=== PATIENT | female | born 1980 | race Hispanic/Latino ===

== ENCOUNTER 2016-10-12 01:18 | Observation (INO) | payer OTHER ==
[2016-10-12 01:43] VITALS: BMI 18.8
[2016-10-12 01:47] VITALS: TEMP 98.9; O2SAT 100
--- NOTE | 2016-10-12 01:57 | ED PDOC ---
HPI: Psych/Substance Abuse Time Seen by Provider: 10/12/16 01:43 Chief Complaint (Nursing): Anxiety Chief Complaint (Provider): Anxiety History Per: Patient History/Exam Limitations: no limitations Onset/Duration Of Symptoms: Hrs Additional Complaint(s): Patient is a 36 year old female brought to the emergency department by her for anxiety and panic that started an hour ago with associated left sided head tingling and pain, neck discomfort, and general pain throughout the left side of her body. Reports increasing anxiety and agitation. 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 Reports that she had felt these symptoms once before and was referred to a specialist for head and neck MRI but the appointment today was cancelled. Denies chest pain, shortness of breath, surgical history, allergies, or drug use. PCP: none provided. Past Medical History Reviewed: Historical Data, Nursing Documentation, Vital Signs Vital Signs: Last Vital Signs Temp 98.9 F 10/12/16 01:44 Pulse 103 H 10/12/16 01:44 Resp 22 10/12/16 01:44 BP 136/73 10/12/16 01:44 Pulse Ox 100 10/12/16 01:44 - Medical History Other PMH: Neck problem to be diagnosed - Surgical History Surgical History: No Surg Hx - Family History Family History: States: Unknown Family Hx - Social History Current smoker - smoking cessation education provided: Yes Alcohol: Social Drugs: Denies - Allergies Allergies/Adverse Reactions: Allergies Allergy/AdvReac Type Severity Reaction Status Date / Time No Known Allergies Allergy Verified 10/12/16 01:43 Review of Systems ROS Statement: Except As Marked, All Systems Reviewed And Found Negative Constitutional: Positive for: Other (pain throughout left side of body) Cardiovascular: Negative for: Chest Pain Respiratory: Negative for: Shortness of Breath Musculoskeletal: Positive for: Neck Pain (neck discomfort), Other (left sided head pain and tingling) Neurological: Positive for: Headache (resolving) Psych: Positive for: Anxiety Physical Exam - Reviewed Nursing Documentation Reviewed: Yes Vital Signs Reviewed: Yes - Physical Exam Appears: Positive for: Well, Non-toxic, No Acute Distress Head Exam: Positive for: ATRAUMATIC, NORMAL INSPECTION, NORMOCEPHALIC Skin: Positive for: Normal Color, Warm, DRY Eye Exam: Positive for: EOMI, Normal appearance, PERRL Neck: Positive for: Normal, Supple Cardiovascular/Chest: Positive for: Regular Rate, Rhythm. Negative for: Murmur Respiratory: Positive for: Normal Breath Sounds. Negative for: Accessory Muscle Use, Respiratory Distress Gastrointestinal/Abdominal: Positive for: Normal Exam, Soft Back: Positive for: Normal Inspection Extremity: Positive for: Normal ROM. Negative for: Pedal Edema Neurologic/Psych: Positive for: Alert, Oriented. Negative for: Other ( paresthesia, limb weakness) - Laboratory Results Result Diagrams: 10/12/16 02:01 10/12/16 02:01 - ECG O2 Sat by Pulse Oximetry: 100 (RA) Pulse Ox Interpretation: Normal Medical Decision Making Medical Decision Making: Time: 01:45 Initial Plan: -Labs -EKG -Cervical Spine CT Scan w/o contrast -Head CT Scan w/o contrast -Ativan 1 mg IVP -Reevaluation Initial Impression: Intracranial process, cervical spine fracture, psychiatric process. 04:22 Lab work reviewed and noted for low potassium. Head CT Scan Findings: Brain: Unremarkable. No hemorrhage. No significant white matter disease. No edema. Ventricles: Unremarkable. No ventriculomegaly. Bones/joints: Unremarkable. No acute fracture. Soft tissues: Unremarkable. Sinuses: Unremarkable as visualized. No acute sinusitis. Mastoid air cells: Unremarkable as visualized. No mastoid effusion. IMPRESSION: No evidence of an acute intracranial abnormality. Cervical Spine CT Scan Findings: Straightening of the normal cervical lordosis. There is no evidence of acute fracture. There is no evidence of malalignment or dislocation. C5-6 and C6-7 mild left paracentral disc bulge and mild spinal canal stenosis. There are no significant degenerative changes present. The facet joints are intact. The pharyngeal, hypopharyngeal, and laryngeal structures are unremarkable. There is no evidence of lymphadenopathy. The visualized portions of the lung apices are normal. 06:08 Lab work was reviewed with normal findings. Urine test is positive for benzodiazepines, however patient is on Xanax. 06:59 Discussed results with patient who expressed extreme anxiety. Will order image of the soft tissue of the neck as patient still admits to feeling pain on the left side of her neck. Patient was evaluated by Dr. Avalos and is stable for discharge with diagnosis of anxiety. Upon provider reevaluation patient is medically stable, and requires no further treatment in the ED at this time. Counseling was provided and all questions were answered regarding diagnosis and need for follow up. There is agreement to discharge plan. Return if symptoms persist or worsen. IMPRESSION: No acute fracture or dislocation Scribe Attestation: Documented by Georgia Camejo, acting as a scribe for Dee Miller MD Provider Scribe Attestation: All medical record entries made by the Scribe were at my direction and personally dictated by me. I have reviewed the chart and agree that the record accurately reflects my personal performance of the history, physical exam, medical decision making, and the department course for this patient. I have also personally directed, reviewed, and agree with the discharge instructions and disposition. Disposition - Patient ED Disposition Is Patient to be Admitted: No - Disposition Forms: [employer] (Niuean)
[2016-10-12 02:04] LABS: BASO # 0.1 K/uL (0.0-0.2); BASO % 0.8 % (0.0-2.0); EOS # 0.3 K/uL (0.0-0.7); EOS % 4.1 % (0.0-4.0); HEMOGLOBIN 12.8 g/dL (12.0-16.0); LYMPH # 2.6 K/uL (1.0-4.3); LYMPH % 32.8 % (20.0-40.0); MEAN CELL VOLUME 92.7 fl (81.0-99.0); MEAN CORPUSCULAR HEMOGLOBIN 30.9 pg (27.0-31.0); MEAN CORPUSCULAR HGB CONC 33.3 g/dL (33.0-37.0); MEAN PLATELET VOLUME 8.9 fl (7.2-11.7); MONO # 0.6 K/uL (0.0-0.8); MONO % 7.8 % (0.0-10.0); NEUT # 4.2 K/uL (1.8-7.0); NEUT % 54.5 % (50.0-75.0); NRBC % 0.1 % (0.0-0.0); RBC 4.15 Mil/uL (3.80-5.20); RED CELL DISTRIBUTION WIDTH 12.7 % (11.5-14.5); WHITE BLOOD COUNT 7.8 K/uL (4.8-10.8)
[2016-10-12 02:13] LABS: ALB/GLOB RATIO 1.6 (1.0-2.1); ALBUMIN 4.6 g/dL (3.5-5.0); ALT/SGPT 32 U/L (9-52); AST/SGOT 21 U/L (14-36); BLOOD UREA NITROGEN 12 mg/dl (7-17); CALCIUM 9.3 mg/dL (8.4-10.2); GFR AFRICAN-AMERICAN > 60; GFR NON-AFRICAN AMERICAN > 60; SALICYLATE 4.6 mg/dl
[2016-10-12 02:15] LABS: ACETAMINOPHEN < 10.0 ug/ml (10.0-30.0)
[2016-10-12] MEDS ORDERED: Potassium Chloride 20 mEq ER Tab PO ONE ×3 (03:42→07:58)
[2016-10-12 04:43] LABS: BARBITURATES, UR NEGATIVE (NEGATIVE); BENZODIAZEPINES, UR POSITIVE (NEGATIVE); OPIATES, UR NEGATIVE (NEGATIVE); PHENCYCLIDINE, UR NEGATIVE (NEGATIVE)
--- NOTE | 2016-10-12 07:52 | ED PDOC ---
- Laboratory Results Result Diagrams: 10/12/16 02:01 10/12/16 02:01 - ECG O2 Sat by Pulse Oximetry: 100 (RA) Medical Decision Making Medical Decision Making: received patient from Dr. Miller. patient is pending CT scan of the neck soft tissue to evaluate presence/absence of abscess. CT scan of neck reviewed with Dr. Barboza. No obvious acute findings. Will discharge home. Advised to followup with neurology. Disposition Doctor Will See Patient In The: Office Counseled Patient/Family Regarding: Diagnosis, Need For Followup - Clinical Impression Clinical Impression: Neck pain - POA Present On Arrival: None - Disposition Disposition: Routine/Home Disposition Time: 09:15 Condition: STABLE
[2016-10-12 08:01] VITALS: RESP 16
--- NOTE | 2016-10-12 08:04 | CT ---
PROCEDURE: CT Cervical Spine without contrast HISTORY: Neck Pain. No history of recent/ related trauma provided COMPARISON: None available. TECHNIQUE: Axial computed tomography images were obtained of the cervical spine without the use of intravenous contrast. Coronal and sagittal reformatted images were created and reviewed. Radiation dose: Total exam DLP = 259.92 mGy-cm. This CT exam was performed using one or more of the following dose reduction techniques: Automated exposure control, adjustment of the mA and/or kV according to patient size, and/or use of iterative reconstruction technique. FINDINGS: VERTEBRAE: No fracture. Normal alignment. No destructive bony lesion. DISCS/SPINAL CANAL/NEURAL FORAMINA: No significant central canal or neural foraminal stenosis. Discs heights are grossly preserved. PARASPINAL SOFT TISSUES: Unremarkable. OTHER FINDINGS: None. IMPRESSION: No acute findings related to/accounting for the clinical presentation. Concordant results (preliminary interpretation) provided by [employer]. Procedure Completed: 02:08. Preliminary ([facility]) Report: Dictated and Authenticated: 03:05. Final Interpretation: 08:02. October 12, 2016.
[2016-10-12 08:05] VITALS: BP 115/67; PULSE 88
--- NOTE | 2016-10-12 08:33 | CT ---
PROCEDURE: CT HEAD WITHOUT CONTRAST. HISTORY: Anxiety, headache COMPARISON: None available. TECHNIQUE: Axial computed tomography images were obtained through the head/brain without intravenous contrast. Coronal and sagittal reconstructed images. Radiation dose: Total exam DLP = 831.48 mGy-cm. This CT exam was performed using one or more of the following dose reduction techniques: Automated exposure control, adjustment of the mA and/or kV according to patient size, and/or use of iterative reconstruction technique. FINDINGS: HEMORRHAGE: No intracranial hemorrhage. BRAIN: No mass effect or edema. No atrophy or chronic microvascular ischemic changes. VENTRICLES: Unremarkable. No hydrocephalus. CALVARIUM: Unremarkable. PARANASAL SINUSES: Unremarkable as visualized. No significant inflammatory changes. MASTOID AIR CELLS: Unremarkable as visualized. No inflammatory changes. OTHER FINDINGS: None. IMPRESSION: No significant or acute findings to account for/ related to the clinical presentation.
--- NOTE | 2016-10-12 08:38 | CT ---
PROCEDURE: CT NECK WITHOUT CONTRAST HISTORY: left sided neck pain and anxiety, severe. COMPARISON: October 12, 2016. TECHNIQUE: CT of the neck without intravenous contrast. Coronal and sagittal reformats generated. Radiation dose: DLP 278.58 mGy-cm This CT exam was performed using one or more of the following dose reduction techniques: Automated exposure control, adjustment of the mA and/or kV according to patient size, and/or use of iterative reconstruction technique. FINDINGS: NASOPHARYNX: Unremarkable. SUPRAHYOID NECK: Unremarkable oropharynx, oral cavity, parapharyngeal space and retropharyngeal space. INFRAHYOID NECK: Unremarkable larynx, hypopharynx, and supraglottic space. Vocal cords intact. MASS: None. GLANDS: Parotid and submandibular glands unremarkable. Normal size thyroid gland, without nodule. LYMPH NODES: Small lymph nodes bilaterally none larger than 1 cm likely infectious/inflammatory CERVICAL SPINE: No fracture or focal lesion. OTHER FINDINGS: Chronic bilateral maxillary sinus disease. IMPRESSION: No acute findings related to/accounting for the clinical presentation.
--- NOTE | 2016-10-12 11:41 | CARD ---
APPROVED REPORT EKG Measurement Heart [id number] OR [id number] <Conclusion> Normal sinus rhythm Possible Left atrial enlargement Borderline ECG
== END 2016-10-12 09:49 | disposition home or self-care (01) ==
LOC: H.ER 01:18 → H.EROBSV 07:51
PROVIDERS: ADMIT Emergency Medicine; ATTEND Emergency Medicine
DX: M48.02 Spinal stenosis, cervical region (principal); F41.9 Anxiety disorder, unspecified; F17.200 Nicotine dependence, unspecified, uncomplicated